=== PATIENT | male | born 1975 | race American Indian/Alaskan Native ===

== ENCOUNTER 2022-02-15 17:21 | Emergency (ER) | payer OTHER ==
[2022-02-15] MEDS ORDERED: PANTOPRAZOLE 40 MG INJ IV ONE (20:16)
[2022-02-15] MEDS ORDERED: SODIUM CHLORIDE 0.9% 1000 ML 1,000 ML IV ONE ×2 (20:16)
[2022-02-15] MEDS ORDERED: ONDANSETRON 4 MG/2 ML INJ IV ONE ×2 (20:16→22:13)
--- NOTE | 2022-02-15 20:22 | Emergency Department Report ---
ED General Adult HPI - General Chief complaint: Medical Clearance Stated complaint: CANCER PT/NOT EATING Time Seen by Provider: 02/15/22 20:15 Source: patient, family Mode of arrival: Ambulatory Limitations: No Limitations - History of Present Illness Initial comments: Chief complaint: No appetite since chemo. HPI: This is a 46-year-old male with history of stage IV pancreatic cancer diagnosed in August 2021 who presents with poor appetite nausea vomiting heartburn since first chemotherapy session 3 days ago on February 12. Patient has poor appetite. His stomach feels weird. He has significant heartburn and belching. He denies diarrhea. He is passing gas. He has had small bowel movements. He just does not feel like eating. He spoke with his oncology team and [facility] [place]. He was encouraged to go to the ER for IV fluid therapy. -: Gradual, days(s) (Symptoms began during chemotherapy treatment February 12) Location: abdomen Severity scale (0 -10): 4 Quality: dull Consistency: constant Improves with: none Worsens with: none Associated Symptoms: nausea/vomiting, other (Heartburn belching) Treatments Prior to Arrival: none - Related Data Previous Rx's Medication Instructions Recorded Last Taken Type Omeprazole 20 mg PO DAILY 30 Days #30 02/15/22 Unknown Rx Ondansetron [Zofran Odt] 4 mg PO Q8HR PRN #20 tab.rapdis 02/15/22 Unknown Rx Allergies Allergy/AdvReac Type Severity Reaction Status Date / Time No Known Allergies Allergy Unverified 02/15/22 17:25 ED Review of Systems ROS: Stated complaint: CANCER PT/NOT EATING Other details as noted in HPI Comment: All other systems reviewed and negative Constitutional: denies: chills, fever Respiratory: denies: cough, shortness of breath Cardiovascular: denies: chest pain Gastrointestinal: nausea, vomiting. denies: abdominal pain, diarrhea, constipation ED Past Medical Hx - Past Medical History Previous Medical History?: Yes Additional medical history: Stage IV pancreatic cancer - Surgical History Past Surgical History?: Yes Additional Surgical History: Left inguinal hernia surgery - Family History Family history: cancer (Father recently diagnosed with prostate cancer) - Social History Smoking Status: Former Smoker Substance Use Type: Alcohol (Previous social drinker) - Medications Home Medications: Home Medications Medication Instructions Recorded Confirmed Last Taken Type Omeprazole 20 mg PO DAILY 30 Days #30 02/15/22 Unknown Rx Ondansetron [Zofran Odt] 4 mg PO Q8HR PRN #20 tab.rapdis 02/15/22 Unknown Rx ED Physical Exam - General Limitations: No Limitations General appearance: alert, in no apparent distress - Head Head exam: Present: atraumatic, normocephalic - Eye Eye exam: Present: normal appearance - ENT ENT exam: Present: mucous membranes moist - Neck Neck exam: Present: normal inspection, full ROM - Respiratory Respiratory exam: Present: normal lung sounds bilaterally. Absent: respiratory distress, wheezes, rales, rhonchi - Cardiovascular Cardiovascular Exam: Present: regular rate, normal rhythm, normal heart sounds. Absent: systolic murmur, diastolic murmur, rubs, gallop - GI/Abdominal GI/Abdominal exam: Present: soft, normal bowel sounds. Absent: distended, te nderness, guarding, rebound - Rectal Rectal exam: Present: deferred - Extremities Exam Extremities exam: Present: normal inspection - Neurological Exam Neurological exam: Present: alert, oriented X3 - Psychiatric Psychiatric exam: Present: normal affect, normal mood - Skin Skin exam: Present: warm, dry, intact, normal color. Absent: rash ED Course Vital Signs 02/15/22 17:29 Temperature 98.9 F Pulse Rate 92 H Respiratory 18 Rate Blood Pressure 129/101 [Right] O2 Sat by Pulse 99 Oximetry ED Medical Decision Making - Medical Decision Making Dehydration due to poor appetite and severe nausea vomiting as a result of chemotherapy. Patient received 2 L normal saline. He is discharged home. Critical care attestation.: If time is entered above; I have spent that time in minutes in the direct care of this critically ill patient, excluding procedure time. ED Disposition Clinical Impression: Dehydration, Adverse effect of chemotherapy, Poor appetite Disposition: 01 HOME / SELF CARE / HOMELESS Is pt being admited?: No Does the pt Need Aspirin: No Condition: Stable Instructions: Dehydration, Adult, [id number] Prescriptions: Omeprazole 20 mg PO DAILY 30 Days #30 Ondansetron [Zofran Odt] 4 mg PO Q8HR PRN #20 tab.rapdis PRN Reason: Nausea Referrals: ARELY ARROYO [Other] - 3-5 Days
[2022-02-15 23:35] LABS: Blood Urea Nitrogen 16 mg/dL (9-20); Calcium 8.5 mg/dL (8.4-10.2); Hemolysis Index 10
[2022-02-15 23:53] LABS: BUN/Creatinine Ratio 23
[2022-02-16 00:27] VITALS: BP 144/95
== END 2022-02-16 00:14 | disposition home or self-care (01) ==
LOC: ED 17:21
DX: E86.0 Dehydration (principal); T45.1X5A Adverse effect of antineoplastic and immunosuppressive drugs, initial encounter; R63.0 Anorexia; Z87.891 Personal history of nicotine dependence; F10.20 Alcohol dependence, uncomplicated
CPT/HCPCS: 36415; 80048; 96361; 96374; 96375; 96376; 99284; C9113; J2405; J7030; Q0162